=== PATIENT | female | born 1980 | race Caucasian/White ===

== ENCOUNTER 2018-05-16 18:01 | Outpatient (REF) | payer MEDICAID, SELFPAY ==
--- NOTE | 2018-05-16 15:00 | PAPFT_PTH ---
PATIENT: Lashaun Dalal LOC: [facility] U#:[id number] AGE/SX: 37/F ROOM: RE05/16/[address]: Inna Zepeda : 1980 BED: DIS: 05/16/2018 SPEC #: [id number] RECD: 05/17/18 13:00 STATUS: KATT WAGNER #: [id number] KESHAWN: 05/16/18 15:[address]: Inna Reyna DEPT: [facility] Cytology RECD BY: Amelia Marks Tissues: 1 - CX/ENDOCX FOR PAP SMEARS Procedures: PAP THIN PREP/[facility] Screening HPV DNA PROBE Comments: [id number]
[2018-05-16 22:45] LABS: Cholesterol 186 mg/dL (50-200); HDL Cholesterol 51 mg/dL (40-60); LDL CHOLESTEROL 122 mg/dL (<100); TSH (W/Ref FT4) 2.87 uIU/mL (0.358-3.74); Triglyceride 81 mg/dL (30-150)
== END 2018-05-16 18:02 ==
LOC: NCHCN 18:01
PROVIDERS: PCP Nurse Practitioner Family; Visit Provider Nurse Practitioner Family
DX: N94.6 Dysmenorrhea, unspecified (principal); Z13.220 Encounter for screening for lipoid disorders; Z12.4 Encounter for screening for malignant neoplasm of cervix; Z11.51 Encounter for screening for human papillomavirus (HPV)
CPT/HCPCS: 80061; 83721; 88142; 84443; 87624

== ENCOUNTER 2019-02-12 09:58 | Outpatient (REF) | payer MEDICAID, SELFPAY ==
[2019-02-13 08:14] LABS: C-Reactive Protein 0.71 mg/dL (0.0-0.3)
== END 2019-02-12 10:18 ==
LOC: NCHCN 09:58
PROVIDERS: PCP Nurse Practitioner Family; Visit Provider Nurse Practitioner Family
DX: R10.2 Pelvic and perineal pain (principal); R79.82 Elevated C-reactive protein (CRP)
CPT/HCPCS: 86140

== ENCOUNTER 2019-03-06 12:05 | Outpatient (REF) | payer MEDICAID, SELFPAY ==
[2019-03-06 22:12] LABS: C-Reactive Protein 0.44 mg/dL (0.0-0.3)
[2019-03-06 22:55] LABS: ESR 20 MM/HR (0-20)
== END 2019-03-06 12:25 ==
LOC: NCHCN 12:05
PROVIDERS: PCP Nurse Practitioner Family; Visit Provider Nurse Practitioner Family
DX: R79.82 Elevated C-reactive protein (CRP) (principal)
CPT/HCPCS: 85652; 86140

== ENCOUNTER 2022-06-03 18:18 | Outpatient (REF) | payer MEDICAID, SELFPAY ==
[2022-06-03 14:41] LABS: HCT 38.3 % (36.0-46.0); HGB 12.8 g/dL (11.2-15.7); MCH 30.6 pg (27.0-33.0); MCHC 33.4 % (32.0-36.0); MCV 92 fL (80-95); Platelet Count 314 10^3/uL (130-400); RBC 4.18 10^6/uL (3.93-5.22); RDW 12.5 % (11.7-14.6); RDW-SD 42.2 fL; WBC 7.46 10^3/uL (4.4-10.8)
== END 2022-06-03 18:19 | disposition home or self-care (01) ==
LOC: NCHCN 18:18
PROVIDERS: PCP Nurse Practitioner Family; Visit Provider Nurse Practitioner Family
DX: N94.6 Dysmenorrhea, unspecified (principal)
CPT/HCPCS: 85027

== ENCOUNTER 2022-07-26 10:11 | Outpatient (REF) | payer MEDICAID, SELFPAY ==
[2022-07-26 15:58] LABS: Hemoglobin A1C 5.6 % (<5.7)
[2022-07-26 16:29] LABS: Anion Gap 9.5 mmol/L (3-11); BUN 10 mg/dL (7-18); CO2 25.5 mmol/L (21.0-32.0); CREATININE 0.7 mg/dL (0.55-1.02); Calcium 9.6 mg/dL (8.5-10.1); Calculated LDL 130 mg/dL (<100); Chloride 104 mmol/L (98-107); Cholesterol 200 mg/dL (<200); Estimated GFR 112.05 (mL/min/1.73m2); Glucose 95 mg/dL (74-106); HDL Cholesterol 52 mg/dL (40-60); Potassium 4.3 mmol/L (3.5-5.1); Sodium 139 mmol/L (136-145); TSH 2.09 uIU/mL (0.36-3.74); Triglyceride 90 mg/dL (<150)
== END 2022-07-26 10:12 | disposition home or self-care (01) ==
LOC: NCHCN 10:11
PROVIDERS: PCP Nurse Practitioner Family; Visit Provider Nurse Practitioner Family
DX: R10.2 Pelvic and perineal pain (principal); Z13.29 Encounter for screening for other suspected endocrine disorder; Z13.220 Encounter for screening for lipoid disorders; Z13.1 Encounter for screening for diabetes mellitus; Z00.00 Encounter for general adult medical examination without abnormal findings
CPT/HCPCS: 80048; 80061; 83036; 84443

== ENCOUNTER 2024-04-10 11:15 | Outpatient (REF) | payer BC, MEDICAID, SELFPAY ==
--- NOTE | 2024-04-10 08:25 | PAPFT_PTH ---
PATIENT: Lashaun Dalal [facility]: [facility] U#:[id number] AGE/SX: 43/F ROOM: RE04/10/[address]: Inna Zepeda : 1980 BED: DIS: 04/10/2024 SPEC #: [id number] RECD: 04/10/24 18:35 STATUS: KATT WAGNER #: [id number] KESHAWN: 04/10/24 08:[address]: Inna Reyna DEPT: [facility] Cytology RECD BY: Amelia Marks Tissues: 1 - CX/ENDOCX FOR PAP SMEARS Procedures: PAP THIN PREP/[facility] Screening HPV DNA PROBE Comments: [id number] (HPV 16 & 18/45)
== END 2024-04-10 11:16 | disposition home or self-care (01) ==
LOC: NCHCN 11:15
PROVIDERS: PCP Nurse Practitioner Family; Visit Provider Nurse Practitioner Family
DX: Z12.4 Encounter for screening for malignant neoplasm of cervix (principal); Z11.51 Encounter for screening for human papillomavirus (HPV)
CPT/HCPCS: 88142; 87624

== ENCOUNTER 2025-04-15 18:46 | Outpatient (REF) | payer BC, SELFPAY ==
[2025-04-15 14:40] LABS: HCT 41.3 % (36.0-46.0); HGB 13.7 g/dL (11.2-15.7); MCH 30.4 pg (27.0-33.0); MCHC 33.2 % (32.0-36.0); MCV 92 fL (80-95); MPV 9.1 fL (8.0-11.0); Platelet Count 305 10^3/uL (130-400); RBC 4.50 10^6/uL (3.93-5.22); RDW 13.3 % (11.7-14.6); RDW-SD 45.2 fL; WBC 12.16 10^3/uL (4.4-10.8)
[2025-04-15 15:06] LABS: Hemoglobin A1C 5.4 % (<5.7)
[2025-04-15 15:34] LABS: ALT 40 U/L (14-59); AST 22 U/L (15-37); Albumin 4.3 g/dL (3.4-5.0); Alkaline Phosphatase 94 U/L (46-116); Anion Gap 10.1 mmol/L (3-11); BUN 11 mg/dL (7-18); Bilirubin, Total 0.4 mg/dL (0.2-1.0); CO2 26.9 mmol/L (21.0-32.0); Calcium 9.1 mg/dL (8.5-10.1); Calculated LDL 126 mg/dL (<100); Chloride 102 mmol/L (98-107); Cholesterol 191 mg/dL (<200); Estimated GFR 114.86 (mL/min/1.73m2); Glucose 90 mg/dL (74-106); HDL Cholesterol 50 mg/dL (>or=50); Potassium 4.3 mmol/L (3.5-5.1); Sodium 139 mmol/L (136-145); TSH 2.07 uIU/mL (0.36-3.74); Total Protein 7.6 g/dL (6.4-8.2); Triglyceride 78 mg/dL (<150)
== END 2025-04-15 18:47 | disposition home or self-care (01) ==
LOC: NCHCN 18:46
PROVIDERS: PCP Nurse Practitioner Family; Visit Provider Nurse Practitioner Family
DX: Z13.220 Encounter for screening for lipoid disorders (principal); Z13.1 Encounter for screening for diabetes mellitus; Z13.0 Encounter for screening for diseases of the blood and blood-forming organs and certain disorders involving the immune mechanism; E66.9 Obesity, unspecified
CPT/HCPCS: 80053; 80061; 85027; 83036; 84443